=== PATIENT | female | born 1985 | race Caucasian/White ===

== ENCOUNTER 2018-01-01 10:02 | Inpatient (IN) | payer MEDICAID ==
[2018-01-01] MEDS ORDERED: OXYTOCIN 30 UNITS/LR 500 ML IV ×3 (11:00→18:30)
[2018-01-01] MEDS ORDERED: MISOPROSTOL 200 MCG TAB PR ×2 (11:00→18:30)
[2018-01-01] MEDS ORDERED: METHYLERGONOVINE 0.2 MG INJ IM ×2 (11:00→18:30)
[2018-01-01] MEDS ORDERED: CARBOPROST 250 MCG INJ IM ×2 (11:00→18:30)
[2018-01-01 11:14] LABS: ADD MAN DIFF? NO
[2018-01-01 11:15] LABS: BASOPHILS % 0.2 % (0.0-2.0); EOSINOPHILS # 0.5 10^3/ul (0.0-0.5); HEMATOCRIT 33.5 % (37.0-47.0); HEMOGLOBIN 11.5 g/dl (12.0-16.0); LYMPHOCYTES # 1.6 10^3/ul (0.8-2.9); LYMPHOCYTES % 15.6 % (15.0-51.0); MEAN CORPUSCULAR HEMOGLOBIN 30.7 pg (29.0-33.0); MEAN CORPUSCULAR HGB CONC 34.3 g/dl (32.0-37.0); MEAN CORPUSCULAR VOLUME 89.6 fl (82.0-101.0); MEAN PLATELET VOLUME 10.1 fl (7.4-10.4); MONOCYTE # 0.7 10^3/ul (0.3-0.9); MONOCYTES % 6.7 % (0.0-11.0); NEUTROPHIL # 7.4 10^3/ul (1.6-7.5); NEUTROPHILS % 71.6 % (39.0-77.0); PLATELET COUNT 229 10^3/UL (140-415); RED BLOOD COUNT 3.74 10^6/ul (4.20-5.40); RED CELL DISTRIBUTION WIDTH 13.3 % (11.5-14.5)
[2018-01-01 11:15] LABS: WHITE BLOOD COUNT 10.3 10^3/ul (4.8-10.8)
[2018-01-01] MEDS: LACTATED RINGER'S 1,000 ML IV ×2 (11:17→18:58)
[2018-01-01 11:39] LABS: INR 0.95; PARTIAL THROMBOPLASTIN TIME 28.3 Sec (25.0-35.0); PROTIME 12.8 Sec (11.9-14.9)
[2018-01-01] MEDS ORDERED: OXYTOCIN 10 UNIT INJ ×2 (12:28→13:08)
[2018-01-01] MEDS ORDERED: EPHEDrine SULFATE 50 MG/5 ML SYG (12:28)
[2018-01-01] MEDS ORDERED: morphine SULFATE/PF (10 MG/10 ML) INJ (12:28)
[2018-01-01] MEDS ORDERED: METOCLOPRAMIDE 10 MG INJ (12:28)
[2018-01-01] MEDS ORDERED: ONDANSETRON 4 MG INJ (12:28)
[2018-01-01] MEDS ORDERED: BUPIVACAINE 0.75%/DEXT (SPINAL) 2 ML INJ (12:40)
[2018-01-01 12:43] LABS: HEPATITIS B SURFACE ANTIGEN NEGATIVE (NEGATIVE)
[2018-01-01] MEDS: OXYTOCIN 30 UNITS/LR 500 ML IV ×3 (14:27→18:12)
[2018-01-01] MEDS: CEFAZOLIN 2 GM/50 ML (PMX) 50 ML IV (14:29)
[2018-01-01] MEDS ORDERED: EPHEDrine SULFATE 50 MG/5 ML SYG IV (14:30)
[2018-01-01] MEDS ORDERED: ONDANSETRON 4 MG INJ IV (14:30)
[2018-01-01] MEDS ORDERED: NALOXONE (0.4 MG/ML) INJ IV (14:30)
[2018-01-01] MEDS: morphine SULFATE/PF (10 MG/10 ML) INJ SPINAL (14:30)
[2018-01-01] MEDS ORDERED: morphine 2 MG INJ IV ×2 (14:30)
[2018-01-01] MEDS: DIPHENHYDRAMINE 50 MG INJ IV (18:17)
[2018-01-01] MEDS ORDERED: LANOLIN 7 GM TUBE TOP (18:30)
[2018-01-01] MEDS ORDERED: OXYCODONE/ACETAMINOPHEN (5/325) TAB PO (18:30)
[2018-01-01] MEDS ORDERED: HYDROCODONE/APAP (5/325) TAB PO ×2 (18:30)
[2018-01-01] MEDS: CEFAZOLIN 1 GM/50 ML (PMX) 50 ML IVPB (20:26)
[2018-01-01 22:41] LABS: RAPID PLASMA REAGIN NONREACTIVE (NR)
[2018-01-02] MEDS: OXYTOCIN 30 UNITS/LR 500 ML IV ×3 (02:12→06:35)
[2018-01-02] MEDS: KETOROLAC 30 MG INJ IV ×2 (04:06→11:17)
[2018-01-02] MEDS: SENNA/DOCUSATE NA (8.6MG/50MG) TAB PO ×2 (09:30→21:58)
[2018-01-02] MEDS: LACTATED RINGER'S 1,000 ML IV (10:40)
[2018-01-02 11:53] LABS: ADD MAN DIFF? NO
[2018-01-02 12:00] LABS: BASOPHILS % 0.2 % (0.0-2.0); EOSINOPHILS # 0.4 10^3/ul (0.0-0.5); EOSINOPHILS % 2.8 % (0.0-7.0); HEMOGLOBIN 10.6 g/dl (12.0-16.0); LYMPHOCYTES # 1.3 10^3/ul (0.8-2.9)
[2018-01-02 12:11] LABS: WHITE BLOOD COUNT 13.9 10^3/ul (4.8-10.8)
[2018-01-02 12:11] LABS: HEMATOCRIT 30.9 % (37.0-47.0); MEAN CORPUSCULAR HGB CONC 34.3 g/dl (32.0-37.0); MEAN CORPUSCULAR VOLUME 90.4 fl (82.0-101.0); MONOCYTES % 7.4 % (0.0-11.0); NEUTROPHIL # 11.1 10^3/ul (1.6-7.5); PLATELET COUNT 198 10^3/UL (140-415); RED BLOOD COUNT 3.42 10^6/ul (4.20-5.40); RED CELL DISTRIBUTION WIDTH 13.3 % (11.5-14.5)
[2018-01-02] MEDS: IBUPROFEN 600 MG TAB PO (17:58)
[2018-01-03] MEDS: OXYCODONE/ACETAMINOPHEN (5/325) TAB PO ×2 (00:33→19:50)
[2018-01-03] MEDS: IBUPROFEN 600 MG TAB PO ×5 (01:01→23:44)
[2018-01-03] MEDS: SENNA/DOCUSATE NA (8.6MG/50MG) TAB PO ×2 (09:42→20:37)
[2018-01-03] MEDS: NA PHOSPHATE/BIPHOS 133 ML ENEMA PR (14:09)
[2018-01-04] MEDS: IBUPROFEN 600 MG TAB PO ×2 (05:48→12:19)
[2018-01-04] MEDS: OXYCODONE/ACETAMINOPHEN (5/325) TAB PO (08:08)
[2018-01-04] MEDS: SENNA/DOCUSATE NA (8.6MG/50MG) TAB PO (08:08)
[2018-01-04] MEDS: DIPHTH/TET/ACEL PERTUSS (ADULT) 0.5 ML VIAL IM* (09:00)
== END 2018-01-04 14:16 | disposition home or self-care (01) | DRG 766 ==
LOC: L-D 10:02 → PP1 17:50
PROVIDERS: Obstetrics & Gynecology
PROC: 10D00Z1 Extraction of Products of Conception, Low, Open Approach (ICD-10-PCS; principal; 2018-01-01 12:30)
PROC: 3E033VJ Introduction of Other Hormone into Peripheral Vein, Percutaneous Approach (ICD-10-PCS; 2018-01-01 12:30)
DX: O34.211 Maternal care for low transverse scar from previous cesarean delivery (principal); Z3A.39 39 weeks gestation of pregnancy; Z37.0 Single live birth
CPT/HCPCS: 85025; 85610; 85730; 86592; 86850; 86900; 86901; 87340; 99464

== ENCOUNTER 2018-01-13 20:23 | Emergency (ER) | payer MEDICAID ==
[2018-01-13] MEDS: KETOROLAC 60 MG INJ IM (21:56)
== END 2018-01-13 22:23 | disposition home or self-care (01) ==
LOC: FTE 20:23
DX: O86.0 Infection of obstetric surgical wound (principal); L03.311 Cellulitis of abdominal wall; B96.89 Other specified bacterial agents as the cause of diseases classified elsewhere
CPT/HCPCS: 81025; 96372; 99284-25